=== PATIENT | female | born 1980 | race Caucasian/White ===

== ENCOUNTER 2020-01-07 17:00 | Emergency (ER) | payer OTHER, MEDICAID, SELFPAY ==
--- NOTE | 2020-01-07 17:08 | ED_ITS ---
HPI - Alcohol <Torrie Pereira PA-C - Last Filed: 01/07/20 19:30> General Chief Complaint: Toxicology Problem Stated Complaint: Medical Clearance Time Seen by Provider: 01/07/20 17:07 Source: patient Mode of arrival: Ambulatory Limitations: no limitations History of Present Illness HPI narrative: This 39-year-old female comes to ED for ?medical clearance? as she wishes to go to crisis center for detox. She states she has had a lifelong problem with alcohol, drinking more in the last couple of years and especially in the last couple of weeks due to stressors. She states that she has stopped drinking before. She states that she has experienced shakes and sweats in the past if she does not drink. No history of seizures or hospitalization for withdrawal symptoms. She states that her last drink was late morning, may be 6 hours or so ago. She has been drinking a bottle of wine and a couple of beers daily recently, maybe a maximum of 2 bottles of wine daily. She states that r ight now she does not feel shaky, she feels somewhat anxious and emotional. She denies abdominal pain, nausea, vomiting, any recent illness. Family is here with her. Related Data Previous Rx's Medication Instructions Recorded chlordiazepoxide HCl 50 mg PO Q12H #14 cap 01/07/20 Review of Systems <Torrie Pereira PA-C - Last Filed: 01/07/20 19:30> Review of Systems ROS Unobtainable: All systems reviewed & are unremarkable except as noted in HPI and below Patient History <Torrie Pereira PA-C - Last Filed: 01/07/20 19:30> Medical History Alcohol abuse (Chronic) Surgical History (Updated 01/07/20 @ 17:33 by Torrie Pereira PA-C) Status post (Resolved) Social History Smoking Status: Current some day smoker tobacco type: vaping alcohol intake frequency: 3 or more drinks per day Alcohol type: beer and wine Exam <Torrie Pereira PA-C - Last Filed: 01/07/20 19:30> Narrative Exam Narrative: GENERAL APPEARANCE: Patient sitting comfortably, tearful at times. HEENT: PERRL, EOMI, no scleral icterus, normal oropharynx NECK: Supple, no masses LUNGS: Clear to auscultation bilaterally. HEART: Rate and rhythm regular, normal S1 and S2, no S3 or S4. ABDOMEN: Soft, nontender, nondistended, bowel sounds present x 4 quadrants, no masses palpable EXTREMITIES: No edema DERMATOLOGIC: No jaundice or exanthem NEUROLOGIC: Alert and oriented with normal speech and coordination. Responses appropriate, minimally tremulous Initial Vital Signs Initial Vital Signs: Vital Signs Temperature 98.2 F 01/07/20 17:12 Pulse Rate 107 H 01/07/20 17:12 Respiratory Rate 18 01/07/20 17:12 Blood Pressure 128/83 01/07/20 17:12 Pulse Oximetry 99 01/07/20 17:12 <DO Angel Ortiz Last Filed: 01/08/20 07:04> Initial Vital Signs Initial Vital Signs: Vital Signs Temperature 98.2 F 01/07/20 17:12 Pulse Rate 107 H 01/07/20 17:12 Respiratory Rate 18 01/07/20 17:12 Blood Pressure 128/83 01/07/20 17:12 Pulse Oximetry 99 01/07/20 17:12 Course <Torrie Pereira PA-C - Last Filed: 01/07/20 19:30> Course Additional Information: Patient was discharged in the company of family to [facility] [employer] [facility] helper her prescription and go to crisis center. Nurse report was given to intake Orders Ordered: ED Orders 01/07/20 17:25 Ethanol (ETOH) Stat Vital Signs Vital signs: Vital Signs - 8 hr 01/07/20 17:12 01/07/20 18:08 Temperature 98.2 F Pulse Rate 107 H 92 H Respiratory Rate 18 17 Blood Pressure 128/83 133/74 Pulse Oximetry 99 100 <DO Angel Ortiz Last Filed: 01/08/20 07:04> Orders Ordered: ED Orders 01/07/20 17:25 Ethanol (ETOH) Stat Vital Signs Vital signs: Vital Signs - 8 hr 01/07/20 17:12 01/07/20 18:08 Temperature 98.2 F Pulse Rate 107 H 92 H Respiratory Rate 18 17 Blood Pressure 128/83 133/74 Pulse Oximetry 99 100 MDM - Alcohol <JES Velázquez Last Filed: 01/07/20 19:30> Lab Data Attestation: I reviewed the patient's lab results. Labs: Lab Results 01/07/20 Range/Units 17:25 Ethyl Alcohol 254 H ( - 10) mg/dL <Sergio Thomas DO - Last Filed: 01/08/20 07:04> Lab Data Labs: Lab Results 01/07/20 Range/Units 17:25 Ethyl Alcohol 254 H ( - 10) mg/dL Discharge Plan Departure Patient Disposition: Home Clinical Impression: Alcohol abuse Discharge Date/Time: 01/07/20 18:10 Instructions: DI for Alcohol Abuse Activity Restrictions/Additional Instructions: I have given you a prescription to [facility] for a medicine called Librium, which is long-acting and works very well for alcohol withdrawal symptoms. Please go there straight from here. Please take this with you to the crisis Center. Best wishes for your recovery Prescriptions: New chlordiazepoxide HCl 25 mg capsule 50 mg PO Q12H Qty: 14 RF: 0 <Sergio Thomas DO - Last Filed: 01/08/20 07:04> Cosign ED Attending Cosignature Attestation: Dr Thomas Co-Sign Statement: I was available for consultation during this patient's emergency department visit. This chart is signed by myself for administrative purposes only. I did not have direct contact with this patient during this visit. They were seen independently by the APC.
[2020-01-07 17:12] VITALS: BP 128/83; PULSE 107; RESP 18; TEMP 36.8; O2SAT 99
[2020-01-07 17:48] LABS: Ethanol (ETOH) 254 mg/dL
[2020-01-07 18:08] VITALS: BP 133/74; PULSE 92; RESP 17; O2SAT 100
== END 2020-01-07 18:10 | disposition home or self-care (01) ==
PROVIDERS: Emergency Provider Internal Medicine
DX: F10.10 Alcohol abuse, uncomplicated (principal); Y90.8 Blood alcohol level of 240 mg/100 ml or more
CPT/HCPCS: 36415; 80320; 99281; 99283